=== PATIENT | female | born 1995 | race Caucasian/White ===

== ENCOUNTER → 2021-04-04 | Outpatient (REF) | payer OTHER ==
[~2021-04-04] MED LIST: BIRTH CONTROL PILL PO; EPIP0.3I IM; HYDR-3363 PO; IBUP-1022 PO; MINI2CAP PO; PEPCID PO; PREVACID PO; PROZ10CA7 PO; SINGUL; SINGULAIR PO; SODIGEL; TRAZ-252 PO; VENTAER IN; ZYRTEC PO; luvox PO
== END ==
LOC: M WUC 15:39
PROVIDERS: ATTEND Physician Assistant
DX: R05.9 Cough, unspecified (principal)

== ENCOUNTER 2021-08-12 12:51 | Emergency (ER) | payer OTHER ==
[~2021-08-12] VITALS: Ht 162.6 cm; Wt 57.8 kg
[2021-08-12] MEDS ORDERED: NS 1,000 ML IV ONE (14:10)
[2021-08-12] MEDS ORDERED: KETOROLAC 30 MG/ML 1ML VIAL IV ONE (14:10)
[2021-08-12 14:21] VITALS: BP 127/76
[2021-08-12 14:24] LABS: HEMATOCRIT 36.2 % (36.0-47.0); LYMPH # 0.4 10^3/uL (1.5-5.0); LYMPH % 14.2 % (24.0-44.0); MEAN CORPUSCULAR HEMOGLOBIN 38.2 pg (27.0-33.0); MEAN CORPUSCULAR HGB CONC 35.9 g/dl (32.0-36.5); MEAN CORPUSCULAR VOLUME 106.5 fl (80.0-96.0); MONO # 0.1 10^3/uL (0.0-0.8); MONO % 3.5 % (2.0-8.0); NEUTROPHILS # 2.1 10^3/uL (1.5-8.5); NEUTROPHILS % 81.9 % (36.0-66.0); PLATELET COUNT, AUTOMATED 102 10^3/uL (150-450); WHITE BLOOD COUNT 2.5 10^3/uL (4.0-10.0)
[2021-08-12 14:41] LABS: BLOOD UREA NITROGEN 14 MG/DL (7-18); CARBON DIOXIDE LEVEL 25 MEQ/L (21-32); CHLORIDE LEVEL 103 MEQ/L (98-107); CREATININE FOR GFR 0.76 MG/DL (0.55-1.30); GLOMERULAR FILTRATION RATE > 60.0 (>60); GLUCOSE, FASTING 140 MG/DL (70-100); POTASSIUM SERUM 3.7 MEQ/L (3.5-5.1); SODIUM LEVEL 138 MEQ/L (136-145)
== END 2021-08-12 16:13 | disposition home or self-care (01) ==
LOC: M ED 12:51
DX: S00.93XA Contusion of unspecified part of head, initial encounter (principal); Y92.9 Unspecified place or not applicable; Y93.9 Activity, unspecified; Y99.9 Unspecified external cause status; R55 Syncope and collapse; Z88.0 Allergy status to penicillin; Z91.040 Latex allergy status; Z91.048 Other nonmedicinal substance allergy status
CPT/HCPCS: 70450; 80048; 84702; 85025; 93005; 96361; 96374; 99284; J1885

== ENCOUNTER → 2021-11-18 | Outpatient (CLI) | payer OTHER | LOC: M WHC 12:23 | PROVIDERS: ATTEND Physician Assistant | DX: N94.10 Unspecified dyspareunia (principal) ==

== ENCOUNTER 2022-12-05 19:16 | Inpatient (IN) | payer MEDICAID, OTHER ==
[~2022-12-05] VITALS: Ht 162.6 cm; Wt 54.2 kg
[~2022-12-05 19:16] MED LIST changes: +BUSP1TAB
[2022-12-05] MEDS ORDERED: LIDOCAINE 1% MDV 20ML VIAL SC ONE (19:30)
[2022-12-05] MEDS ORDERED: BACITRACIN OINTMENT 30GM TUBE TOP ONE (20:05)
[2022-12-05] MEDS ORDERED: BOOSTRIX VACCINE (TETANUS/DIPHTH/ACEL. PERTUSSIS) 0.5ML SYR IM.IMMUN ONE (20:05)
[2022-12-05 20:17] LABS: HEMATOCRIT 31.7 % (36.0-47.0); HEMOGLOBIN 11.2 g/dl (12.0-15.5); MEAN CORPUSCULAR HEMOGLOBIN 41.9 pg (27.0-33.0); MEAN CORPUSCULAR HGB CONC 35.3 g/dl (32.0-36.5); RED BLOOD COUNT 2.67 10^6/uL (4.00-5.40); WHITE BLOOD COUNT 3.3 10^3/uL (4.0-10.0)
[2022-12-05 20:19] LABS: MEAN CORPUSCULAR VOLUME 118.7 fl (80.0-96.0); PLATELET COUNT, AUTOMATED 90 10^3/uL (150-450)
[2022-12-05 20:38] LABS: PHENCYCLIDINE URINE NEGATIVE (NEGATIVE)
[2022-12-05 20:39] LABS: AMPHETAMINES LEVEL URINE NEGATIVE (NEGATIVE); BARBITURATES URINE NEGATIVE (NEGATIVE); CANNABINOIDS URINE NEGATIVE (NEGATIVE); COCAINE METABOLITE URINE NEGATIVE (NEGATIVE); METHADONE URINE NEGATIVE (NEGATIVE); OPIATES URINE NEGATIVE (NEGATIVE)
[2022-12-05 20:40] LABS: BENZODIAZEPINES URINE NEGATIVE (NEGATIVE)
[2022-12-05 20:41] LABS: ETHYL ALCOHOL (ETHANOL) 0.255 % (0.000-0.010)
[2022-12-05 20:43] LABS: ACETAMINOPHEN LEVEL < 2.0 UG/ML (10.0-20.0); ALBUMIN 4.6 G/DL (3.2-5.2); ALKALINE PHOSPHATASE 103 U/L (46-116); ALT/SGPT 54 U/L (7.0-40); AST/SGOT 62 U/L (<34); BILIRUBIN,DIRECT 0.5 MG/DL (<0.4); BILIRUBIN,TOTAL 1.2 MG/DL (0.3-1.2); BLOOD UREA NITROGEN 8 MG/DL (9-23); CALCIUM LEVEL 8.8 MG/DL (8.5-10.1); CARBON DIOXIDE LEVEL 21 MMOL/L (20-31); CHLORIDE LEVEL 112 MMOL/L (98-107); CREATININE FOR GFR 0.67 MG/DL (0.55-1.30); GLOMERULAR FILTRATION RATE > 60.0 (>60); GLUCOSE, FASTING 76 MG/DL (60-100); SALICYLATE LEVEL < 3.0 MG/DL (<30); SODIUM LEVEL 144 MMOL/L (136-145); TOTAL PROTEIN 7.2 G/DL (5.7-8.2)
[2022-12-05 20:44] LABS: THYROID STIMULATING HORMONE 2.035 uIU/ML (0.55-4.78)
[2022-12-05 20:45] LABS: HCG, SERUM QUALITATIVE NEGATIVE (NEGATIVE)
[2022-12-06] MEDS ORDERED: ACETAMINOPHEN TAB 650MG DOSE (2X325MG) PO ONE (09:35)
[2022-12-06] MEDS ORDERED: MED REC IN PROGRESS XX SCH (09:55)
[2022-12-06] MEDS ORDERED: THERTAB21 PO (09:58)
[2022-12-06] MEDS ORDERED: HOME MED LIST COMPLETE! XX SCH (10:05)
[2022-12-07] MEDS ORDERED: MAALOX 30 ML SUSP *UDC PO PRN (07:55)
[2022-12-07] MEDS ORDERED: OLANZapine ORAL DISINTEGRATING TAB 5MG PO PRN (07:55)
[2022-12-07] MEDS ORDERED: MOM 30ML SUSPENSION UDC PO PRN (07:55)
[2022-12-07 11:21] VITALS: BP 128/89; TEMP 97.3; O2SAT 100
[2022-12-07] MEDS: ACETAMINOPHEN TAB 650MG DOSE (2X325MG) PO PRN ×2 (12:35→18:30)
[2022-12-07] MEDS: NICOTINE 21MG/24HR 1 EA TRANSDERMAL TD PRN (12:36)
[2022-12-07] MEDS ORDERED: LORazepam 2 MG TAB PO PRN (16:45)
[2022-12-07 17:07] VITALS: BP 136/86
[2022-12-07 18:00] VITALS: BP 128/81; TEMP 97.8; O2SAT 100
[2022-12-07] MEDS: FOLIC ACID 1MG TAB PO SCH (18:27)
[2022-12-07] MEDS: THIAMINE 100 MG TAB PO SCH (18:28)
[2022-12-07] MEDS: MULTIVITAMINS/MINERALS THERAP 1 TAB PO SCH (18:28)
[2022-12-07 23:15] VITALS: BP 125/74
[2022-12-07] MEDS: traZODone 50 MG TAB PO PRN (23:16)
[2022-12-08 06:29] VITALS: BP 107/68; TEMP 97.4; O2SAT 99
[2022-12-08 06:31] VITALS: BP 107/68
[2022-12-08] MEDS: BACITRACIN OINTMENT 30GM TUBE TOP SCH ×2 (09:00→21:00)
[2022-12-08] MEDS: MULTIVITAMINS/MINERALS THERAP 1 TAB PO SCH (09:50)
[2022-12-08] MEDS: FOLIC ACID 1MG TAB PO SCH (09:51)
[2022-12-08] MEDS: THIAMINE 100 MG TAB PO SCH ×2 (09:51→21:15)
[2022-12-08] MEDS: SERTRALINE HCL 25 MG TABLET PO SCH (09:51)
[2022-12-08] MEDS: busPIRone 5 MG TAB PO SCH (09:51)
[2022-12-08] MEDS: NICOTINE 21MG/24HR 1 EA TRANSDERMAL TD PRN (18:09)
[2022-12-08 18:13] VITALS: BP 117/64; TEMP 97.8; O2SAT 100
[2022-12-08 22:16] VITALS: BP 130/82
[2022-12-08] MEDS: traZODone 50 MG TAB PO PRN (23:19)
[2022-12-09 06:37] VITALS: BP 105/62; TEMP 96.9; O2SAT 100
[2022-12-09 06:38] VITALS: BP 105/62
[2022-12-09] MEDS: FOLIC ACID 1MG TAB PO SCH (08:51)
[2022-12-09] MEDS: busPIRone 5 MG TAB PO SCH (08:51)
[2022-12-09] MEDS: SERTRALINE HCL 25 MG TABLET PO SCH (08:52)
[2022-12-09] MEDS: THIAMINE 100 MG TAB PO SCH (08:52)
[2022-12-09] MEDS: BACITRACIN OINTMENT 30GM TUBE TOP SCH (08:52)
[2022-12-09] MEDS: MULTIVITAMINS/MINERALS THERAP 1 TAB PO SCH (08:52)
[2022-12-09] MEDS ORDERED: SERT25TA21 PO (09:36)
[2022-12-09] MEDS ORDERED: TRAZ-252 PO (09:42)
[2022-12-09] MEDS ORDERED: BUSP5TA PO (09:42)
== END 2022-12-09 11:55 | disposition home or self-care (01) | DRG 756 ==
LOC: M ED 19:16 → EDBD 19:16 → M ED INP 12-07 07:52 → M PSY 12-07 09:43
PROVIDERS: ADMIT Psychiatry & Neurology Psychiatry; ATTEND Student in an Organized Health Care Education/Training Program
DX: F41.8 Other specified anxiety disorders (principal); F32.9 Major depressive disorder, single episode, unspecified; F43.10 Post-traumatic stress disorder, unspecified; F10.10 Alcohol abuse, uncomplicated; Z88.0 Allergy status to penicillin; Z88.8 Allergy status to other drugs, medicaments and biological substances; Z91.048 Other nonmedicinal substance allergy status; Z79.899 Other long term (current) drug therapy; I45.6 Pre-excitation syndrome; J45.20 Mild intermittent asthma, uncomplicated; E28.2 Polycystic ovarian syndrome; N80.9 Endometriosis, unspecified; F17.290 Nicotine dependence, other tobacco product, uncomplicated; S61.511A Laceration without foreign body of right wrist, initial encounter; R74.01 Elevation of levels of liver transaminase levels; X78.0XXA Intentional self-harm by sharp glass, initial encounter; Y93.9 Activity, unspecified; Y99.9 Unspecified external cause status; Y92.9 Unspecified place or not applicable

== ENCOUNTER → 2024-02-24 | Outpatient (CLI) | payer OTHER ==
[~2024-02-24] MED LIST changes: +BUSP5TA PO; +SERT25TA21 PO; +THERTAB21 PO
[2024-02-24 18:17] LABS: BASO % 0.5 % (0.0-1.0); EOS # 0.1 10^3/uL (0.0-0.5); EOS % 1.3 % (0.0-3.0); HEMOGLOBIN 12.1 g/dl (12.0-15.5); LYMPH # 1.5 10^3/uL (1.5-5.0); MEAN CORPUSCULAR HEMOGLOBIN 36.9 pg (27.0-33.0); MEAN CORPUSCULAR HGB CONC 34.6 g/dl (32.0-36.5); MEAN CORPUSCULAR VOLUME 106.7 fl (80.0-96.0); MONO # 0.2 10^3/uL (0.0-0.8); MONO % 5.9 % (2.0-8.0); NEUTROPHILS # 2.1 10^3/uL (1.5-8.5); NEUTROPHILS % 53.3 % (36.0-66.0); PLATELET COUNT, AUTOMATED 152 10^3/uL (150-450); RED BLOOD COUNT 3.28 10^6/uL (4.00-5.40); WHITE BLOOD COUNT 3.9 10^3/uL (4.0-10.0)
[2024-02-24 18:36] LABS: ALBUMIN 4.5 G/DL (3.2-5.2); ALKALINE PHOSPHATASE 76 U/L (46-116); ALT/SGPT 24 U/L (7.0-40); AST/SGOT 26 U/L (<34); BILIRUBIN,TOTAL 1.1 MG/DL (0.3-1.2); BLOOD UREA NITROGEN 7 MG/DL (9-23); CALCIUM LEVEL 9.5 MG/DL (8.5-10.1); CARBON DIOXIDE LEVEL 28 MMOL/L (20-31); CHLORIDE LEVEL 110 MMOL/L (98-107); CREATININE FOR GFR 0.73 MG/DL (0.55-1.30); GLOMERULAR FILTRATION RATE > 60.0 (>60); GLUCOSE, FASTING 95 MG/DL (60-100); POTASSIUM SERUM 3.8 MMOL/L (3.5-5.1); SODIUM LEVEL 142 MMOL/L (136-145); TOTAL PROTEIN 6.8 G/DL (5.7-8.2)
[2024-02-24 18:40] LABS: THYROID STIMULATING HORMONE 0.629 uIU/ML (0.55-4.78)
== END ==
LOC: M RAD 15:20
PROVIDERS: ATTEND Pediatrics
DX: R63.4 Abnormal weight loss (principal)

== ENCOUNTER → 2024-08-22 | Outpatient (CLI) | payer OTHER | LOC: M RAD 16:44 | PROVIDERS: ATTEND Physician Assistant | DX: Z97.5 Presence of (intrauterine) contraceptive device (principal) ==

== ENCOUNTER → 2024-09-21 | Outpatient (CLI) | payer OTHER ==
[2024-09-21 14:39] LABS: BASO % 0.6 % (0.0-1.0); EOS # 0.3 10^3/uL (0.0-0.5); EOS % 8.1 % (0.0-3.0); HEMATOCRIT 33.5 % (36.0-47.0); HEMOGLOBIN 11.6 g/dl (12.0-15.5); LYMPH # 1.6 10^3/uL (1.5-5.0); LYMPH % 47.5 % (24.0-44.0); MEAN CORPUSCULAR HEMOGLOBIN 35.5 pg (27.0-33.0); MEAN CORPUSCULAR HGB CONC 34.6 g/dl (32.0-36.5); MEAN CORPUSCULAR VOLUME 102.4 fl (80.0-96.0); MONO # 0.2 10^3/uL (0.0-0.8); MONO % 6.9 % (2.0-8.0); NEUTROPHILS # 1.2 10^3/uL (1.5-8.5); NEUTROPHILS % 36.9 % (36.0-66.0); PLATELET COUNT, AUTOMATED 195 10^3/uL (150-450); RED BLOOD COUNT 3.27 10^6/uL (4.00-5.40); WHITE BLOOD COUNT 3.4 10^3/uL (4.0-10.0)
[2024-09-21 15:00] LABS: ETHYL ALCOHOL (ETHANOL) < 0.003 % (0.000-0.010)
[2024-09-21 15:02] LABS: BLOOD UREA NITROGEN 6 MG/DL (9-23); CALCIUM LEVEL 8.6 MG/DL (8.5-10.1); CARBON DIOXIDE LEVEL 25 MMOL/L (20-31); CHLORIDE LEVEL 109 MMOL/L (98-107); CREATININE FOR GFR 0.65 MG/DL (0.55-1.30); GLOMERULAR FILTRATION RATE > 90.0 (>60); GLUCOSE, FASTING 95 MG/DL (60-100); IRON (FE) 105 UG/DL (50-170); SODIUM LEVEL 140 MMOL/L (136-145); TOTAL IRON BINDING CAPACITY 309 UG/DL (250-425)
[2024-09-21 15:05] LABS: FERRITIN 150.2 NG/ML (7.3-270.7)
[2024-09-21 15:06] LABS: PROLACTIN 3.92 NG/ML; THYROID STIMULATING HORMONE 0.656 uIU/ML (0.55-4.78)
[2024-09-21 15:07] LABS: FOLATE 15.2 NG/ML (>5.4)
[2024-09-21 15:11] LABS: VITAMIN B12 LEVEL 980 PG/ML (211-911)
== END ==
LOC: M WUC 11:43
PROVIDERS: ATTEND Physician Assistant
DX: F10.90 Alcohol use, unspecified, uncomplicated (principal); R60.0 Localized edema; D64.9 Anemia, unspecified; Z12.4 Encounter for screening for malignant neoplasm of cervix; Z11.3 Encounter for screening for infections with a predominantly sexual mode of transmission

== ENCOUNTER → 2024-09-26 | Outpatient (CLI) | payer MEDICAID | LOC: M OUTALCOH 08:12 | PROVIDERS: ATTEND Psychiatry & Neurology Psychiatry | DX: Z03.89 Encounter for observation for other suspected diseases and conditions ruled out (principal); F17.200 Nicotine dependence, unspecified, uncomplicated ==

== ENCOUNTER → 2024-10-03 | Outpatient (CLI) | payer OTHER | LOC: M WHC 13:28 | PROVIDERS: ATTEND Physician Assistant | DX: N64.52 Nipple discharge (principal) ==

== ENCOUNTER → 2024-11-22 | Outpatient (CLI) | payer OTHER | LOC: M WUC 14:21 | PROVIDERS: ATTEND Nurse Practitioner Family | DX: D70.9 Neutropenia, unspecified (principal); R63.4 Abnormal weight loss ==

== ENCOUNTER → 2024-12-21 | Outpatient (CLI) | payer OTHER ==
[~2024-12-21] MED LIST changes: +PROHANCE 279.3MG/ML 5ML VIAL ONE; +PROZ10CA11 PO; -PROZ10CA7 PO
== END ==
LOC: M PLAIMG 13:54
PROVIDERS: ATTEND Nurse Practitioner Family
DX: R20.0 Anesthesia of skin (principal); R26.2 Difficulty in walking, not elsewhere classified; M47.812 Spondylosis without myelopathy or radiculopathy, cervical region
CPT/HCPCS: 70553; 72156; A9576

== ENCOUNTER → 2024-12-26 | Outpatient (CLI) | payer OTHER | LOC: M PLAIMG 09:16 | PROVIDERS: ATTEND Nurse Practitioner Family | DX: R20.2 Paresthesia of skin (principal); M47.816 Spondylosis without myelopathy or radiculopathy, lumbar region; M51.26 Other intervertebral disc displacement, lumbar region ==